=== PATIENT | male | born 1990 | race Caucasian/White ===

== ENCOUNTER 2019-10-10 | Emergency (ER) | payer BC, OTHER ==
--- NOTE | 2019-10-10 01:27 | CR ---
INDICATION: chest pain CHEST, ONE VIEW An AP radiograph of the chest was performed. Comparison: No previous studies are currently available for comparison. The lungs appear clear and no pleural effusions are identified. The cardiomediastinal silhouette and pulmonary vasculature appear normal, as do the visualized bones. IMPRESSION: No acute intrathoracic abnormality identified. DANITA DON MD [facility] Dictated by: Ramon Don MD @ 10/10/2019 01:25:13 (Electronically Signed)
[2019-10-10 02:03] LABS: ACETAMINOPHEN < 2.0 ug/mL; BLOOD UREA NITROGEN,BUN 14 mg/dL (7.0-18.0); CARBON DIOXIDE,CO2 26.9 mmol/L (21.0-32.0); CHLORIDE,CL 99 mmol/L (98-107); GLUCOSE RANDOM 100 mg/dL (74-106); POTASSIUM,K 3.7 mmol/L (3.5-5.1); SODIUM,NA 139 mmol/L (136-148)
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
== END 2019-10-10 04:20 | disposition other institution (70) ==
LOC: MW.ED
DX: T14.91XA Suicide attempt, initial encounter (principal); F41.9 Anxiety disorder, unspecified; Z98.890 Other specified postprocedural states
CPT/HCPCS: 36415; 71045; 71045-26; 80053; 80305-QW; 80307; 84443; 85025; 93005; 99284; 99285-25

== ENCOUNTER 2019-10-19 19:52 | Emergency (ER) | payer BC ==
--- NOTE | 2019-10-19 20:06 | EDM.PDOC ---
ED HPI GENERAL MEDICAL PROBLEM - General Stated Complaint: COUGHING Time Seen by Provider: 10/19/19 20:06 Source of Information: Reports: Patient History Limitations: Reports: No Limitations - History of Present Illness INITIAL COMMENTS - FREE TEXT/NARRATIVE: HISTORY AND PHYSICAL: History of present illness: Patient is a 29-year-old male who presents to the emergency room today with complaints of cough x 2 weeks. He states a coworker has been diagnosed with influenza B and is concerned he may have this as well. He was seen in our emergency room a week and a half ago with complaints of cough at that time. He states he was not given any medications but does not feel like he is improving with [id number] cough and cold medications. Patient denies any fever, chills, headache, change in vision, syncope or near syncope. Denies any chest pain, back pain, shortness of breath. Denies any GI or symptoms. Patient has been eating and drinking appropriately. Review of systems: As per history of present illness and below otherwise all systems reviewed and negative. Past medical history: As per history of present illness and as reviewed below otherwise noncontributory. Surgical history: As per history of present illness and as reviewed below otherwise noncontributory. Social history: See social history for further information Family history: As per history of present illness and as reviewed below otherwise noncontributory. Physical exam: General: Well-developed and well-nourished 29-year-old male. Alert and oriented. Nontoxic-appearing and in no acute distress. HEENT: Atraumatic, normocephalic, pupils equal and reactive bilaterally, negative for conjunctival pallor or scleral icterus, mucous membranes moist, TMs normal bilaterally, throat clear, neck supple, nontender, trachea midline. No drooling or trismus noted. No meningeal signs. No hot potato voice noted. Lungs: Clear to auscultation, breath sounds equal bilaterally, chest nontender. Dry nonproductive cough. Heart: S1S2, regular rate and rhythm without overt murmur Abdomen: Soft, nondistended, nontender. Negative for masses or hepatosplenomegaly. Negative for costovertebral tenderness. Skin: Intact, warm, dry. No lesions or rashes noted. Extremities: Atraumatic, moves all extremities per self without difficulty or deficits, negative for cords or calf pain. Neurovascular unremarkable. Neuro: Awake, alert, oriented. Cranial nerves II through XII unremarkable. Cerebellum unremarkable. Motor and sensory unremarkable throughout. Exam nonfocal. Notes: Chest x-ray and influenza screening are negative. He states he has had this cough for approximately 2 weeks and he is a smoker. I will treat him with azithromycin. Supportive care measures were reviewed and discussed. Voices understanding and is agreeable to plan of care. Denies any further questions or concerns at this time. Diagnostics: X-ray, influenza Therapeutics: None Prescription: Solomon Ordoñez Impression: Bronchitis Plan: 1. Please stop smoking. 2. Take medication as prescribed. 3. Tylenol and/or ibuprofen as needed for pain/fever. Get plenty of rest. Drink plenty of fluids. 4. Follow up with your primary care provider. Return to the ED as needed and as discussed. Definitive disposition and diagnosis as appropriate pending reevaluation and review of above. chest Pain Score (Numeric/FACES): 3 - Related Data Allergies Allergy/AdvReac Type Severity Reaction Status Date / Time No Known Allergies Allergy Verified 10/19/19 20:03 Home Meds: Home Meds Albuterol Sulfate [Albuterol Sulfate Hfa] 8.5 gm IH ASDIRECTED 10/19/19 [History ] Azithromycin [Zithromax] 1 dose PO DAILY 5 Days #6 tab 10/19/19 [Rx] Benzonatate [Tessalon Perle] 100 mg PO TID PRN #20 capsule 10/19/19 [Rx] Past Medical History HEENT History: Reports: None Psychiatric History: Reports: Anxiety, Other (See Below) Other Psychiatric History: pt states he was on sertraline before - Infectious Disease History Infectious Disease History: Reports: Chicken Pox - Past Surgical History HEENT Surgical History: Reports: Tonsillectomy Social & Family History - Family History Family Medical History: Noncontributory - Caffeine Use Caffeine Use: Reports: Coffee ED ROS GENERAL - Review of Systems Review Of Systems: Comprehensive ROS is negative, except as noted in HPI. ED EXAM, GENERAL - Physical Exam Exam: See Below (See dictation) Course - Vital Signs Last Recorded V/S: Last Vital Signs Temp 98.4 F 10/19/19 20:04 Pulse 95 10/19/19 20:04 Resp 20 10/19/19 20:04 BP 139/64 10/19/19 20:04 Pulse Ox 97 10/19/19 20:04 Departure - Departure Time of Disposition: 21:16 Disposition: Home, Self-Care 01 Clinical Impression: Bronchitis - Discharge Information Prescriptions: Azithromycin [Zithromax] 1 dose PO DAILY 5 Days #6 tab Benzonatate [Tessalon Perle] 100 mg PO TID PRN #20 capsule PRN Reason: Cough Instructions: Upper Respiratory Infection, Adult, [id number] Referrals: PCP,None [Primary Care Provider] - Additional Instructions: The following information is given to patients seen in the emergency department who are being discharged to home. This information is to outline your options for follow-up care. We provide all patients seen in our emergency department with a follow-up referral. The need for follow-up, as well as the timing and circumstances, are variable depending upon the specifics of your emergency department visit. If you don't have a primary care physician on staff, we will provide you with a referral. We always advise you to contact your personal physician following an emergency department visit to inform them of the circumstance of the visit and for follow-up with them and/or the need for any referrals to a consulting specialist. The emergency department will also refer you to a specialist when appropriate. This referral assures that you have the opportunity for follow-up care with a specialist. All of these measure are taken in an effort to provide you with optimal care, which includes your follow-up. Under all circumstances we always encourage you to contact your private physician who remains a resource for coordinating your care. When calling for follow-up care, please make the office aware that this follow-up is from your recent emergency room visit. If for any reason you are refused follow-up, please contact the [facility] at and asked to speak to the emergency department charge nurse. [facility] [address] [place] [id number] [address] 1. Please stop smoking. Take the medications as prescribed. 2. You can continue taking Tylenol and ibuprofen as needed. You can use the Tessalone as needed for cough. 3. Please follow-up with your primary care provider as we discussed. Return to the ED as needed and as discussed. Sepsis Event Note - Focused Exam Vital Signs: Vital Signs Temp Pulse Resp BP Pulse Ox 10/19/19 20:04 98.4 F 95 20 139/64 97 Date Exam was Performed: 10/19/19 Time Exam was Performed: 21:15
--- NOTE | 2019-10-19 20:42 | CR ---
Chest: 2 views of the chest were obtained. Comparison: Prior chest x-ray of 10/10/19. Heart size and mediastinum are normal. Lungs are clear. Bony structures are unremarkable. Impression: 1. Nothing acute is seen on 2 view chest x-ray. Diagnostic code #1 Study was dictated in [place] Standard Time
== END 2019-10-19 21:25 | disposition home or self-care (01) ==
LOC: MW.ED 19:52
DX: J40 Bronchitis, not specified as acute or chronic (principal)
CPT/HCPCS: 71046; 71046-26; 87804; 99283; 99283-25